=== PATIENT | female | born 2005 | race Hispanic/Latino ===

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

== ENCOUNTER 2024-07-30 19:51 | Emergency (ER) | payer OTHER, SELFPAY ==
[2024-07-30 20:02] VITALS: BP 108/70; BMI 22.2
[2024-07-30 20:02] LABS: Glucose - Point of Care 89 mg/dl (70-99)
[2024-07-30 20:18] LABS: % Basophils 0.5 % (0-2); % Eosinophils 0.3 % (0-6); % Immature Granulocytes 0.3 % (0-0.5); % Neutrophils 74.9 % (42.2-75.2); Absolute Lymphocytes 1.4 10^3/uL (1.2-3.4); Absolute Monocytes 0.4 10^3/uL (0.1-0.6); Absolute Neutrophils 5.6 10^3/uL (1.4-6.5); Hematocrit 40.4 % (37.0-47.0); Hemoglobin 14.4 g/dL (12.0-16.0); Mean Corp Hgb Conc. 35.6 g/dL (33.0-37.0); Mean Corpuscular Hgb 29.2 pg (27.0-31.0); Mean Corpuscular Volume 81.9 fL (81.0-99.0); Mean Platelet Volume 11.1 fL (7.4-10.4); Nucleated Red Blood Cells % 0 %; Platelet Count 148 10^3/uL (130-400); Red Blood Cell Count 4.93 10^6/uL (4.20-5.40); Red Cell Dist. Width 11.9 % (11.5-14.5); White Blood Cell Count 7.5 10^3/uL (4.8-10.8)
[2024-07-30 20:44] LABS: ALT (SGPT) 25 U/L (0-35); AST (SGOT) 41 U/L (14-36); Albumin 4.8 g/dl (3.5-5.0); Alkaline Phosphatase 61 U/L (38-126); Blood Urea Nitrogen 7 mg/dl (7-17); Calcium 9.6 mg/dl (8.4-10.2); Carbon Dioxide 25 mmol/L (22-30); Chloride 104 mmol/L (98-107); Estimated Creatinine Clearance 102 ml/min; Glucose 90 mg/dl (70-99); Sodium 141 mmol/L (135-145); Total Bilirubin 0.8 mg/dl (0.2-1.3); Total Protein 7.4 g/dl (6.3-8.2); eGFR > 60.00
[2024-07-30 21:31] LABS: HCG, Serum Qualitative Screen Negative
[2024-07-30 22:23] VITALS: BP 103/72
[2024-07-30 23:00] VITALS: BP 101/56
[2024-07-30 23:21] LABS: Glucose - Point of Care 84 mg/dl (70-99)
--- NOTE | 2024-07-30 23:21 | ED.GENMED ---
History of Present Illness
General
Chief Complaint: Blood Sugar Problem
Time Seen by Provider: 07/30/24 22:54
History of Present Illness
History of Present Illness:
Patient is a 18-year-old girl with no past medical history presenting to the emergency department with blood sugar problems. Patient states that 2 days ago she went to an urgent care and was found to have low blood sugars. She does state that she
has been feeling dizzy lightheaded occasionally when she eats she feels much better. She does state that she eats a lot of healthier food such as salads and protein. She does work out a lot. She does state that she stays away from carbs and
sugars. She denies any fevers chills weight loss. No skin changes. No family history of low sugar problems. She does state that she has IBS and does have frequent bowel movement. When she went to an urgent care they related to her diet as well
as her IBS. She does not have a PCP and does not see endocrinology.
Past History
Past History
ED Past Medical History: Asthma, Psychiatric and Other (anemia)
ED Past Surgical History: Cholecystectomy
Social History
Tobacco: Non-smoker
Alcohol: None
Drug: None
Personal: Single
Living: with family
Employment: Student
Phy Exam
Physical Exam
Physical Exam:
GENERAL: in no acute distress
HEENT: normocephalic, extraocular movements intact, moist oral mucosa
NECK: normal inspection
RESPIRATORY: no respiratory distress, clear to auscultation bilaterally
CARDIOVASCULAR: regular rate and rhythm
ABDOMEN/: soft, non-distended, non-tender to palpation, no rebound or guarding
EXTREMITIES: non-tender, no edema/swelling
NEUROLOGIC: awake and alert, moves all extremities
SKIN: warm
Course
Orders/Labs/Results
Orders:
Orders
07/30/24 20:05
Test Result ONCE
07/30/24 20:10
Complete Blood Count/With Diff Urgent
Comprehensive Metabolic Panel Urgent
HCG, Serum Qualitative Screen Urgent
Abnormal Lab Results
07/30/24
20:10
MPV 11.1 H fL
(7.4-10.4)
Lymphocytes % 19.0 L %
(20.5-51.1)
AST 41 H U/L
(14-36)
07/30/24 20:10
07/30/24 20:10
Vital Signs
Initial and Last Documented VS:
Initial Vital Signs
Temp Pulse Resp BP Pulse Ox
98.6 F 83 18 108/70 99
07/30/24 20:02 07/30/24 20:02 07/30/24 20:02 07/30/24 20:02 07/30/24 20:02
Last Documented Vital Signs
Temp Pulse Resp BP Pulse Ox
98.6 F 83 17 103/72 99
07/30/24 20:02 07/30/24 20:02 07/30/24 22:26 07/30/24 22:23 07/30/24 22:26
MDM/Problems Addressed
Differential Diagnosis Includes:
Patient is a 18-year-old woman presenting to the emergency department with problems with her blood sugar. Vitals are unremarkable and exam is reassuring. Hypoglycemia is likely related to nutritional intake. Patient denies any drug use to
suggest. No signs or symptoms of that just sepsis or infection. No signs of adrenal insufficiency. she did have normal Accu-Chek during her entire visit on blood work. We did discuss the importance of increasing her carbohydrates to help with her
blood sugar. I did give patient PCP follow-up. She will discuss for endocrinology follow-up as well. Strict return precautions given.. Will discharge at this time.
*Critical Care Note
Total Time (30-74mins, 75-104mins- exclusive of procedures): Not Applicable
ED Attending Note
-
Portions of this chart may have been created with voice recognition software.� Occasional wrong word or��sound alike� substitutions may have occurred due to the inherent limitations of voice recognition software.
Discharge Plan
Departure
Patient Disposition: Home (Routine Discharge)
Date of Disposition: 07/30/24
Time of Disposition: 23:25
Patient with high blood pressure during this ER visit?: No
Discharge Problem:
Hypoglycemia
Instructions: Low Blood Sugar, Adult ED
Prescriptions:
No Action
penicillin V potassium 500 mg tablet
500 mg PO TID Qty: 21 0RF
Referrals:
[facility] [Outside]
Interventions
Interventions:
*Risk Screen - Suicide Last Done: 07/30/24 20:02
*General Assessment Last Done: 07/30/24 20:02
*Neglect/Abuse Screening Last Done: 07/30/24 20:02
ED- Fall Risk Assessment Last Done: 07/30/24 22:26
*ED COVID-19 Vaccine History Last Done: 07/30/24 20:02
ED- Neurological Assessment Last Done: 07/30/24 22:27
Discharge Date and Time
Print Language: AZERI
[2024-07-31] VITALS: BP 97/61
== END 2024-07-31 00:10 | disposition home or self-care (01) ==
LOC: EMR 19:51
PROVIDERS: Student in an Organized Health Care Education/Training Program; EMERGENCY PHYSICIAN Student in an Organized Health Care Education/Training Program
DX: E16.2 Hypoglycemia, unspecified (principal); K58.9 Irritable bowel syndrome, unspecified; J45.909 Unspecified asthma, uncomplicated; Z90.49 Acquired absence of other specified parts of digestive tract
CPT/HCPCS: 99283; 80053; 82962; 84703; 85025